=== PATIENT | female | born 1990 | race Hispanic/Latino ===

== ENCOUNTER 2021-04-07 07:47 | Day surgery (SDC) | payer OTHER ==
[2021-04-06 14:53] LABS: BASOPHILS % (AUTO) 0.3 % (0.0-5.0); EOSINOPHILS % (AUTO) 0.9 % (0.0-8.0); LYMPHOCYTES % (AUTO) 27.2 % (21.0-51.0); MEAN CORPUSCULAR HEMOGLOBIN 28.6 pg (27.0-33.0); MEAN CORPUSCULAR HGB CONC 31.9 g/dL (32.0-36.0); MEAN CORPUSCULAR VOLUME 89.6 fL (79-99); MONOCYTES % (AUTO) 5.1 % (3.0-13.0); NEUTROPHILS % (AUTO) 66.2 % (40.0-77.0); PLATELET COUNT (AUTO) 306 K/uL (130-400); RED BLOOD CELL COUNT(AUTO) 4.69 MIL/uL (4.00-5.50); RED CELL DISTRIBUTION WIDTH 13.9 % (11.0-15.5); WHITE BLOOD COUNT (AUTO) 7.7 K/uL (4.8-10.8)
[2021-04-06 15:06] VITALS: BP 109/60
[~2021-04-07] VITALS: Ht 160 cm; Wt 69.3 kg
[2021-04-07] VITALS (19 sets, daily range): BP systolic 95–115; BP diastolic 45–76
[~2021-04-07 07:47] MED LIST: IBUP-2077 PO
[2021-04-07] MEDS ORDERED: LACTATED RINGERS 1000ML 1,000 ML IV SCH (08:00)
[2021-04-07] MEDS ORDERED: CEFAZOLIN SODIUM 1 GM VIAL IVP ONE (08:00)
[2021-04-07] MEDS ORDERED: CEFAZOLIN SODIUM 1 GM VIAL ONE (09:33)
[2021-04-07] MEDS ORDERED: FENTANYL CITRATE PF 50 MCG/1 ML 2ML VIAL ONE (10:03)
[2021-04-07] MEDS ORDERED: NEOSTIGMINE 5MG/5ML SYR IV ONE (10:03)
[2021-04-07] MEDS ORDERED: SUCCINYLCHOLINE 200MG/10ML SYR ONE ×2 (10:03→11:04)
[2021-04-07] MEDS ORDERED: LIDOCAINE PF 100MG/5ML (2%) SYRINGE 5ML ONE (10:03)
[2021-04-07] MEDS ORDERED: ROCURONIUM 10MG/1ML SYR 10 MG/ML ML ONE (10:03)
[2021-04-07] MEDS ORDERED: GLYCOPYRROLATE 1 MG/5 ML SYRINGE ONE (10:03)
[2021-04-07] MEDS ORDERED: MIDAZOLAM HCL 1 MG/ML 2ML VIAL ONE (10:03)
[2021-04-07] MEDS ORDERED: ONDANSETRON 4MG INJ ONE (10:03)
[2021-04-07] MEDS ORDERED: DEXAMETHASONE SOD PHOSPHATE 10MG/ML 1ML VIAL ONE (10:03)
[2021-04-07] MEDS ORDERED: PROPOFOL 10 MG/ML 20ML VIAL IV ONE (10:03)
[2021-04-07] MEDS ORDERED: MEPERIDINE-PF 25 MG/ML SYG ONE ×3 (10:04→12:34)
[2021-04-07] MEDS: CALDOLOR 800MG+NS 250ML 250 ML IV PRN ×2 (10:40→10:52)
[2021-04-07] MEDS ORDERED: PHENYLEPHRINE HCL 10 MG/ML 1ML VIAL IV ONE (10:44)
[2021-04-07] MEDS ORDERED: EPHEDRINE SULFATE 50 MG/ML AMPULE ONE (11:02)
[2021-04-07] MEDS ORDERED: BUPIVACAINE/PF 0.25% 30ML VIAL IJ ONE (11:10)
[2021-04-07] MEDS ORDERED: FENTANYL CITRATE PF 50 MCG/1 ML 5ML AMP IV ONE (11:54)
== END 2021-04-07 15:00 | disposition home or self-care (01) ==
LOC: SUH 07:47 → DAH 07:47 → SUH 15:00
PROVIDERS: ATTEND Obstetrics & Gynecology
DX: D27.1 Benign neoplasm of left ovary (principal); N83.12 Corpus luteum cyst of left ovary; Z20.822 Contact with and (suspected) exposure to COVID-19; N73.6 Female pelvic peritoneal adhesions (postinfective); J45.909 Unspecified asthma, uncomplicated; Z98.891 History of uterine scar from previous surgery; Z98.890 Other specified postprocedural states; Z72.89 Other problems related to lifestyle
CPT/HCPCS: 36415; 58661; 84703; 85025; 86850; 86900; 86901; 87635; A4215; A4221; A4222; A4223; A4335; A4344; A4351; A4554; A4649; A4663; A6260; C1765; C1769 ×2; C9803; G0168; J0330 ×2; J0690; J1100; J1741; J2001; J2175 ×3; J2250; J2370; J2405; J2704; J2710; J3010 ×2; J3490 ×3; J7030; J7120